=== PATIENT | male | born 1960 | race Caucasian/White ===

== ENCOUNTER 2020-07-08 13:08 | Emergency (ER) | payer OTHER ==
[~2020-07-08 13:08] MED LIST: ATROVENT HFA12.9 GM INH; HCTZ25 MG PO
== END 2020-07-08 15:04 | disposition home or self-care (01) ==
LOC: FER 13:08
DX: L76.22 Postprocedural hemorrhage of skin and subcutaneous tissue following other procedure (principal); I10 Essential (primary) hypertension; F17.210 Nicotine dependence, cigarettes, uncomplicated; Z98.890 Other specified postprocedural states
CPT/HCPCS: 99282

== ENCOUNTER 2020-09-03 14:42 | Emergency (ER) | payer OTHER | END 2020-09-03 17:13 | disposition home or self-care (01) | LOC: FER 14:42 | DX: S09.90XA Unspecified injury of head, initial encounter (principal); S00.83XA Contusion of other part of head, initial encounter; H53.8 Other visual disturbances; I12.9 Hypertensive chronic kidney disease with stage 1 through stage 4 chronic kidney disease, or unspecified chronic kidney disease; N18.30 Chronic kidney disease, stage 3 unspecified; Z99.2 Dependence on renal dialysis; Z23 Encounter for immunization; W22.8XXA Striking against or struck by other objects, initial encounter; Y92.69 Other specified industrial and construction area as the place of occurrence of the external cause; Y99.0 Civilian activity done for income or pay | CPT/HCPCS: 70450; 72125; 90471; 90715 ==

== ENCOUNTER 2021-01-25 13:08 | Emergency (ER) | payer MEDICARE, OTHER ==
[2021-01-25 13:52] LABS: BASOPHIL 0.8 % (0-2); EOSINOPHIL 1.6 % (0-5); LYMPHOCYTE 5.5 % (15-48); MCH 31.9 pg (25.0-31.0); MCHC 30.6 g/dL (32.0-36.0); MCV 104.3 fL (78.0-100.0); MPV 10.3 fL (6.0-9.5); NEUTROPHIL 87.4 % (41-80); NRBC 0; PLT 244 K/uL (150-400); RBC 3.45 M/uL (4.70-6.00); RDW 18.5 % (11.5-14.0); WBC 11.9 K/uL (4.0-10.5)
[2021-01-25 14:17] LABS: BILIRUBIN - TOTAL 0.5 mg/dL (0.2-1.0); CREATININE 9.83 mg/dL (0.67-1.17); MAGNESIUM 3.1 mg/dL (1.8-2.4)
[2021-01-26 00:14] LABS: CREATININE 10.84 mg/dL (0.67-1.17); POTASSIUM 5.8 mmol/L (3.5-5.1)
== END 2021-01-26 04:10 | disposition other institution (70) ==
LOC: FER 13:08
PROVIDERS: Emergency Medicine; Emergency Medicine Emergency Medical Services
DX: J96.01 Acute respiratory failure with hypoxia (principal); J81.0 Acute pulmonary edema; Z20.822 Contact with and (suspected) exposure to COVID-19; N18.6 End stage renal disease; E11.22 Type 2 diabetes mellitus with diabetic chronic kidney disease; E78.5 Hyperlipidemia, unspecified; F17.210 Nicotine dependence, cigarettes, uncomplicated
CPT/HCPCS: 36415; 36600; 71045; 80048; 80053; 82803; 83605; 83735; 85025; 87040; U0002

== ENCOUNTER 2022-01-25 01:01 | Emergency (ER) | payer MEDICARE, OTHER ==
[2022-01-25 01:42] LABS: BASOPHIL 0.2 % (0-2); EOSINOPHIL 0.5 % (0-5); HCT 31.9 % (42.0-52.0); HGB 10.2 g/dl (13.2-18.0); LYMPHOCYTE 2.1 % (15-48); MCH 29.8 pg (25.0-31.0); MCV 93.3 fL (78.0-100.0); MONOCYTE 3.4 % (0-12); MPV 9.4 fL (6.0-9.5); NRBC 0; PLT 298 K/uL (150-400); RBC 3.42 M/uL (4.70-6.00); RDW 16.6 % (11.5-14.0); WBC 20.5 K/uL (4.0-10.5)
[2022-01-25 02:06] LABS: BILIRUBIN - TOTAL 1.1 mg/dL (0.2-1.0); BUN/CREAT RATIO (CALC) 7.3 RATIO; CREATININE 9.86 mg/dL (0.67-1.17); GLOBULIN (CALCULATION) 4.4 g/dL; TOTAL PROTEIN 7.4 g/dL (6.4-8.2)
[2022-01-25 02:43] LABS: CORONAVIRUS 2019 SARS-COV-2 NEGATIVE (NEGATIVE); INFLUENZA A NAA NEGATIVE (NEGATIVE)
[2022-01-25 02:57] LABS: LACTIC ACID 0.6 mmol/L (0.4-1.9)
[2022-01-25 11:06] LABS: BASOPHIL 0.4 % (0-2); EOSINOPHIL 0.4 % (0-5); HCT 33.3 % (42.0-52.0); HGB 10.6 g/dl (13.2-18.0); LYMPHOCYTE 2.1 % (15-48); MCH 30.1 pg (25.0-31.0); MCHC 31.8 g/dL (32.0-36.0); MCV 94.6 fL (78.0-100.0); MONOCYTE 3.3 % (0-12); NRBC 0; PLT 326 K/uL (150-400); RBC 3.52 M/uL (4.70-6.00); RDW 16.6 % (11.5-14.0); WBC 20.7 K/uL (4.0-10.5)
[2022-01-25 11:07] LABS: NEUTROPHIL 91.7 % (41-80)
[2022-01-25 12:42] LABS: CREATININE 10.2 mg/dL (0.67-1.17); POTASSIUM 6.4 mmol/L (3.5-5.1); TOTAL PROTEIN 7.3 g/dL (6.4-8.2)
[2022-01-25 12:43] LABS: ALBUMIN 2.9 g/dL (3.4-5.0); BILIRUBIN - TOTAL 1.3 mg/dL (0.2-1.0); GLOBULIN (CALCULATION) 4.4 g/dL
== END 2022-01-25 12:25 | disposition other institution (70) ==
LOC: FER 01:01
PROVIDERS: Emergency Medicine
DX: A41.9 Sepsis, unspecified organism (principal); K57.32 Diverticulitis of large intestine without perforation or abscess without bleeding; J44.9 Chronic obstructive pulmonary disease, unspecified; I12.0 Hypertensive chronic kidney disease with stage 5 chronic kidney disease or end stage renal disease; N18.6 End stage renal disease; F17.210 Nicotine dependence, cigarettes, uncomplicated; Z99.2 Dependence on renal dialysis; Z79.899 Other long term (current) drug therapy; Z20.822 Contact with and (suspected) exposure to COVID-19
CPT/HCPCS: 36415; 71250; 80053; 83605; 84145; 84484; 85025; 87040; 93005; 94664; J0692; J2270; J2405; J3370; J7050; U0002